=== PATIENT | male | born 1955 | race African-American/Black ===

== ENCOUNTER 2025-06-30 11:00 | Outpatient (RCR) | payer MEDICARE, SELFPAY | END 2025-08-18 11:26 | disposition home or self-care (01) | LOC: HO.PT 11:00 | PROVIDERS: PCP Internal Medicine; Visit Provider Urology | DX: R30.0 Dysuria (principal); C61 Malignant neoplasm of prostate | CPT/HCPCS: 97110; 97112; 97140; 97161; 97530 ==